=== PATIENT | male | born 1985 | race Caucasian/White ===

== ENCOUNTER → 2023-08-24 10:47 | Outpatient (CLI) | payer OTHER, SELFPAY ==
--- NOTE | 2023-08-24 10:50 | DI.MRI.S_ITS ---
PROCEDURE: MR KNEE RT WO CON INDICATIONS: Right knee pain TECHNIQUE: Noncontrast sagittal PD fast spin echo and T2 fast spin echo with fat saturation, sagittal 3-D FLASH with fat saturation; coronal T1 spin echo and PD fast spin echo with fat saturation, and axial PD fast spin echo with fat saturation through the knee. COMPARISON: None. FINDINGS: Image quality: Excellent. Menisci: The medial and lateral menisci demonstrate normal morphology and internal signal. The meniscal root ligaments appear intact. Cruciate ligaments: The anterior and posterior cruciate ligaments appear intact. Medial structures: The medial collateral ligament appears intact. The posterior oblique ligament, semimembranosus tendon insertions, oblique popliteal ligament, and meniscocapsular junction appear intact. Visualized portions of the pes anserinus tendons appear normal. No abnormal bursal fluid. Lateral structures: The lateral collateral ligament, long and short heads of the biceps femoris tendon appear intact. The popliteus tendon appears normal; the popliteofibular ligament appears intact. The posterosuperior and anteroinferior popliteomeniscal fascicles appear intact. The arcuate and fabellofibular ligaments appear intact, on either side of the lateral inferior geniculate artery. Iliotibial band appears normal. Anterior structures: The distal quadriceps tendon is intact. Mild tendinosis of the distal patellar tendon. There is ossification about the distal patellar tendon with mild marrow edema and mild subchondral cystic changes. Moderate deep infrapatellar bursitis. Mild cystic changes with moderate marrow edema of the anterior tibial plateau. Overall, findings suggestive of active Nishant-Schlatter disease. Small intra-articular body within the infrapatellar bursa. Lateral tilt of the patella. Patellofemoral ligaments are intact. Bones and cartilage: Please see anterior structures section. Multifocal full-thickness chondral fissuring in the medial patellar facet. The cartilage of the trochlea is unremarkable. In the medial compartment, the cartilage is well maintained. In the lateral compartment, the cartilage is well maintained as well. No acute fracture. Joint space: Small knee effusion. No popliteal cyst. Popliteal vasculature is unremarkable. Mild prepatellar subcutaneous edema. IMPRESSION: 1. Findings suggestive of active Nishant-Schlatter disease. Moderate deep infrapatellar bursitis. 2. Lateral tilt of the patella. Mild chondrosis of the patellofemoral compartment. Dictated by: Adela Bay M.D. on 08/25/2023 at 19:21 Approved by: Adela Bay M.D. on 08/25/2023 at 19:32
== END ==
PROVIDERS: Referring Provider Student in an Organized Health Care Education/Training Program; Visit Provider Student in an Organized Health Care Education/Training Program
DX: M70.41 Prepatellar bursitis, right knee (principal); M22.8X1 Other disorders of patella, right knee; M22.41 Chondromalacia patellae, right knee; M25.561 Pain in right knee
CPT/HCPCS: 73721